=== PATIENT | male | born 1980 | race Two or more races ===

== ENCOUNTER 2019-07-25 04:03 | Emergency (ER) | payer MEDICAID ==
[~2019-07-25] VITALS: Ht 167.6 cm; Wt 82.6 kg
--- NOTE | 2019-07-25 04:20 | NUR ---
ED Nurse Note: patient ambulated to ed with chest pain radiating to left arm since 0800 am. Pt is AO x 4times, VSS, on room air no distress. ERMD seen Pt at bedside.
[2019-07-25] MEDS ORDERED: Mylanta II UD 30ml ORAL ONE (04:30)
[2019-07-25] MEDS ORDERED: HYDROcodone/Acetamin 5/325 tab ORAL ONE (04:30)
--- NOTE | 2019-07-25 04:35 | NUR ---
ED Nurse Note: Urine and blood sample sent to lab.
--- NOTE | 2019-07-25 04:35 | Emergency Room Report ---
History of Present Illness General Chief Complaint: Chest Pain Source: Patient Present Illness HPI The patient presents with of left-sided chest pressure and pain that began at noon yesterday. He has had episodes like this before but never this severe. It started when he was at work. He went home and tried to eat something. He vomited this up. There is no coffee grounds. 2 days ago he had some dark stools but denies any blood. He feels occasional palpitations and pressure aching. It does not radiate. He denies fevers or chills. There is no productive cough. The pain is rated 8/10, aching and pressure. The pain is not exertional. He came because the pain radiated down his left arm and he felt numbness there. There is no leg numbness. Risk factors for cardiac disease: None known. Denies diabetes, family history, smoking or high blood pressure. Separate problem he had some right flank pain that lasted a week several weeks ago. He denies dysuria or hematuria. He reports that he is under a lot of stress at this time. He denies suicidal or homicidal ideation. No fevers, chills, sore throat, palpitations, nausea, shortness of breath, joint pain, rashes, visual changes, headache. Allergies: Coded Allergies: No Known Allergies (Unverified , 07/25/19) Patient History Past Medical History: see triage record Social History: Reports: alcohol use - Beer occasional; Denies: smoking, drug use Social History Narrative Works at restaurant -, born in [place] Reviewed Nursing Documentation: PMH: Agreed; PSxH: Agreed Nursing Documentation-PM Past Medical History: No Stated History Review of Systems All Other Systems: negative except mentioned in HPI Physical Exam Vital Signs Date Time Temp Pulse Resp B/P (MAP) Pulse Ox O2 Delivery O2 Flow Rate FiO2 07/25/19 04:07 97.5 62 24 123/79 (94) 97 Room Air Sp02 EP Interpretation: reviewed, normal General Appearance: well appearing, no apparent distress, GCS 15 Head: normocephalic Eyes: bilateral eye normal inspection, bilateral eye PERRL, bilateral eye EOMI ENT: moist mucus membranes Neck: supple Respiratory: chest non-tender, lungs clear, normal breath sounds Cardiovascular #1: regular rate, rhythm Cardiovascular #2: 2+ radial (R) Gastrointestinal: normal inspection, normal bowel sounds, non tender, no mass, non-distended Musculoskeletal: back normal, gait/station normal, normal range of motion Neurologic: alert, oriented x3, grossly normal Psychiatric: anxious Skin: no rash Medical Decision Making Diagnostic Impression: Primary Impression: Chest pain Qualified Codes: R07.9 - Chest pain, unspecified Additional Impression: Situational stress ER Course Patient presents with left-sided chest pain with no known cardiac risk factors. Differential includes acute myocardial infarction, acute coronary syndrome, GERD, gastritis, chest strain, pulmonary embolus amongst others. Clinically based on vital signs and presentation this does not appear to be a pulmonary embolus. Evaluation will be with EKG, chest x-ray and labs. The patient will be treated with Pepcid Mylanta and aspirin. EKG sinus bradycardia but otherwise normal EKG. chest x-ray clear. Labs remarkable for negative troponin. Patient still with chest pain but improved. Discussed findings with patient and significant other. Also discussed treatment plan and outpatient observation. No medical emergency at this time. Patient stable for outpatient observation and treatment. Laboratory Tests Test 07/25/19 04:30 White Blood Count 6.2 K/UL (4.8-10.8) Red Blood Count 4.66 M/UL (4.70-6.10) L Hemoglobin 15.8 G/DL (14.2-18.0) Hematocrit 44.3 % (42.0-52.0) Mean Corpuscular Volume 95 FL (80-99) Mean Corpuscular Hemoglobin 33.9 PG (27.0-31.0) H Mean Corpuscular Hemoglobin Concent 35.6 G/DL (32.0-36.0) Red Cell Distribution Width 10.5 % (11.6-14.8) L Platelet Count 243 K/UL (150-450) Mean Platelet Volume 7.7 FL (6.5-10.1) Neutrophils (%) (Auto) 34.2 % (45.0-75.0) L Lymphocytes (%) (Auto) 47.5 % (20.0-45.0) H Monocytes (%) (Auto) 13.8 % (1.0-10.0) H Eosinophils (%) (Auto) 3.5 % (0.0-3.0) H Basophils (%) (Auto) 1.0 % (0.0-2.0) Prothrombin Time 10.0 SEC (9.30-11.50) Prothrombin Time INR 0.9 (0.9-1.1) PTT 27 SEC (23-33) Urine Color Yellow Urine Appearance Clear Urine pH 6 (4.5-8.0) Urine Specific [place] 1.020 (1.005-1.035) Urine Protein Negative (NEGATIVE) Urine Glucose (UA) Negative (NEGATIVE) Urine Ketones Negative (NEGATIVE) Urine Blood Negative (NEGATIVE) Urine Nitrite Negative (NEGATIVE) Urine Bilirubin Negative (NEGATIVE) Urine Urobilinogen Normal MG/DL (0.0-1.0) Urine Leukocyte Esterase Negative (NEGATIVE) Sodium Level 144 MMOL/L (136-145) Potassium Level 3.7 MMOL/L (3.5-5.1) Chloride Level 108 MMOL/L (98-107) H Carbon Dioxide Level 25 MMOL/L (21-32) Anion Gap 11 mmol/L (5-15) Blood Urea Nitrogen 16 mg/dL (7-18) Creatinine 0.8 MG/DL (0.55-1.30) Estimate Glomerular Filtration Rate > 60 mL/min (>60) Glucose Level 101 MG/DL (74-106) Calcium Level 9.2 MG/DL (8.5-10.1) Total Bilirubin 0.7 MG/DL (0.2-1.0) Aspartate Amino Transferase (AST) 24 U/L (15-37) Alanine Aminotransferase (ALT) 49 U/L (12-78) Alkaline Phosphatase 92 U/L (46-116) Total Creatine Kinase 185 U/L (26-308) Troponin I 0.000 ng/mL (0.000-0.056) Pro-B-Type Natriuretic Peptide 11 pg/mL (0-125) Total Protein 7.7 G/DL (6.4-8.2) Albumin 3.8 G/DL (3.4-5.0) Globulin 3.9 g/dL Albumin/Globulin Ratio 1.0 (1.0-2.7) Urine Opiates Screen Negative (NEGATIVE) Urine Barbiturates Screen Negative (NEGATIVE) Phencyclidine (PCP) Screen Negative (NEGATIVE) Urine Amphetamines Screen Negative (NEGATIVE) Urine Benzodiazepines Screen Negative (NEGATIVE) Urine Cocaine Screen Negative (NEGATIVE) Urine Marijuana (THC) Screen Negative (NEGATIVE) EKG Diagnostic Results Rate: bradycardiac Rhythm: NSR ST Segments: no acute changes Rhythm Strip Diag. Results EP Interpretation: yes Rhythm: no PVC's, no ectopy, other - Bradycardia Chest X-Ray Diagnostic Results Chest X-Ray Diagnostic Results : Chest X-Ray Ordered: Yes # of Views/Limited/Complete: 1 View Indication: Chest Pain EP Interpretation: Yes Interpretation: no consolidation, no effusion, no pneumothorax Impression: No acute disease Electronically Signed by: Electronically signed by Jj Hull MD Last Vital Signs Date Time Temp Pulse Resp B/P (MAP) Pulse Ox O2 Delivery O2 Flow Rate FiO2 07/25/19 06:17 98.2 81 18 128/82 99 Room Air Status: improved Disposition: HOME, SELF-CARE Condition: Improved Scripts Acetaminophen (Tylenol) 325 Mg Tablet 650 MG ORAL Q6H PRN for Prn Pain/Headache/Temp > 101, #30 TAB 0 Refills Prov: Jj Hull MD 07/25/19 Famotidine (PEPCID AC) 20 Mg Tablet 20 MG PO DAILY, #20 TAB Prov: Jj Hull MD 07/25/19 Referrals: NOT CHOSEN IPA/,REFERRING (PCP) Jj Hull MD Jul 25, 2019 04:35
[2019-07-25 04:42] VITALS: BP 139/88
[2019-07-25 05:05] LABS: APPEARANCE,URINE CLEAR; BILIRUBIN, URINE NEGATIVE (NEGATIVE); GLUCOSE, URINE (UA) NEGATIVE (NEGATIVE); KETONES,URINE NEGATIVE (NEGATIVE); LEUKOCYTE ESTERASE ,URINE NEGATIVE (NEGATIVE); NITRITE,URINE NEGATIVE (NEGATIVE); PH,URINE 6 (4.5-8.0); PROTEIN,URINE NEGATIVE (NEGATIVE); UROBILINOGEN,URINE NORMAL MG/DL (0.0-1.0)
--- NOTE | 2019-07-25 05:08 | NUR ---
ED Nurse Note: X ray at bedside.
[2019-07-25 05:15] LABS: ANION GAP 11 mmol/L (5-15); BLOOD UREA NITROGEN 16 mg/dL (7-18); CALCIUM 9.2 MG/DL (8.5-10.1); CARBON DIOXIDE 25 MMOL/L (21-32); CHLORIDE 108 MMOL/L (98-107); COLOR,URINE YELLOW; CREATININE 0.8 MG/DL (0.55-1.30); POTASSIUM 3.7 MMOL/L (3.5-5.1); SODIUM 144 MMOL/L (136-145)
[2019-07-25 05:18] LABS: INR 0.9 (0.9-1.1)
[2019-07-25 05:19] LABS: EOSINOPHILS % (AUTO) 3.5 % (0.0-3.0); HEMATOCRIT 44.3 % (42.0-52.0); HEMOGLOBIN 15.8 G/DL (14.2-18.0); LYMPHOCYTES % (AUTO) 47.5 % (20.0-45.0); MEAN CORPUSCULAR VOLUME 95 FL (80-99); MONOCYTES % (AUTO) 13.8 % (1.0-10.0); NEUTROPHILS % (AUTO) 34.2 % (45.0-75.0); PLATELET COUNT 243 K/UL (150-450); RED BLOOD COUNT 4.66 M/UL (4.70-6.10); RED CELL DISTRIBUTION WIDTH 10.5 % (11.6-14.8); WHITE BLOOD COUNT 6.2 K/UL (4.8-10.8)
[2019-07-25 05:25] LABS: ALANINE AMINOTRANSFERASE 49 U/L (12-78); ALBUMIN 3.8 G/DL (3.4-5.0); ALKALINE PHOSPHATASE 92 U/L (46-116); ASPARTATE AMINO TRANSFERASE 24 U/L (15-37); BILIRUBIN,TOTAL 0.7 MG/DL (0.2-1.0); CREATINE KINASE 185 U/L (26-308)
[2019-07-25] MEDS ORDERED: PEPCID AC20 M2 PO (06:04)
[2019-07-25] MEDS ORDERED: TYLENOL325 MG ORAL (06:04)
[2019-07-25 06:09] VITALS: BP 128/82
--- NOTE | 2019-07-25 06:16 | Diagnostic Imaging Report ---
EXAM: XR Chest, 1 View CLINICAL HISTORY: Chest pain TECHNIQUE: Frontal view of the chest. COMPARISON: No relevant prior studies available. FINDINGS: Lungs: Unremarkable. No consolidation. No pulmonary edema. Normal lung volumes. Pleural space: Unremarkable. No pneumothorax. Heart: Unremarkable. No cardiomegaly. Mediastinum: Unremarkable. No mediastinal widening or shift. Bones/joints: No acute osseous abnormality. Old, healed right clavicular fracture. IMPRESSION: No evidence of active cardiopulmonary abnormality.
[2019-07-25 06:17] VITALS: BP 128/82
--- NOTE | 2019-07-25 06:18 | NUR ---
ER DISCHARGE NOTE: Patient is cleared to be discharged per ERMD, pt is aox4, on room air, with stable vital signs. pt was given dc and prescription instructions, pt was able to verbalize understanding, pt id band and iv site removed without complications. pt is able to ambulate with steady gait with . pt took all belongings.
== END 2019-07-25 06:20 | disposition home or self-care (01) ==
LOC: EMR 04:17
DX: R07.9 Chest pain, unspecified (principal); F43.9 Reaction to severe stress, unspecified; R00.1 Bradycardia, unspecified
CPT/HCPCS: 36415; 71045; 80053; 80307; 81003; 82550; 83880; 84484; 85025; 85610; 85730; 93005; 99284